=== PATIENT | female | born 1950 | race Caucasian/White ===

== ENCOUNTER → 2016-06-10 | Outpatient (CLI) | payer MEDICARE, OTHER ==
[2016-06-10 09:24] LABS: BASOPHILS # (AUTO) 0.1 10^3/uL (0.0-0.1); BASOPHILS % (AUTO) 1 % (0-10); EOSINOPHILS # (AUTO) 0.2 10^3/uL (0.0-0.3); EOSINOPHILS % (AUTO) 4 % (0-10); LYMPHOCYTES # (AUTO) 1.1 X 10^3 (1.0-4.0); LYMPHOCYTES % (AUTO) 25 % (12-44); MEAN CORPUSCULAR HEMOGLOBIN 32 PG (25-34); MEAN CORPUSCULAR HGB CONC 34 G/DL (32-36); MEAN CORPUSCULAR VOLUME 94 FL (80-99); MEAN PLATELET VOLUME 9.9 FL (7.4-10.4); MONOCYTES # (AUTO) 0.3 X 10^3 (0.0-1.0); MONOCYTES % (AUTO) 8 % (0-12); NEUTROPHILS # (AUTO) 2.8 X 10^3 (1.8-7.8); NEUTROPHILS % (AUTO) 63 % (42-75); PLATELET COUNT 226 10^3/uL (130-400); RED BLOOD COUNT 4.28 10^6/uL (4.35-5.85); RED CELL DISTRIBUTION WIDTH 12.9 % (10.0-14.5); WHITE BLOOD COUNT 4.5 10^3/uL (4.3-11.0)
[2016-06-10 09:56] LABS: ALANINE AMINOTRANSFERASE 20 U/L (0-55); ANION GAP 9 MMOL/L (5-14); ASPARTATE AMINO TRANSFERASE 18 U/L (5-34); BILIRUBIN,TOTAL 0.5 MG/DL (0.1-1.0); BLOOD UREA NITROGEN 16 MG/DL (7-18); BUN/CREATININE RATIO 18; CALCIUM 9.1 MG/DL (8.5-10.1); CARBON DIOXIDE 29 MMOL/L (21-32); CHLORIDE 106 MMOL/L (98-107); CHOLESTEROL 187 MG/DL (< 200); CREATININE SERUM 0.87 MG/DL (0.60-1.30); DIRECT LDL 116 MG/DL (1-129); GFR ESTIMATED > 60; GLUCOSE 92 MG/DL (70-105); POTASSIUM 3.6 MMOL/L (3.6-5.0); SODIUM 144 MMOL/L (135-145); TOTAL PROTEIN 6.6 G/DL (6.4-8.2); TRIGLYCERIDES 89 MG/DL (<150); VLDL CHOLESTEROL 18 MG/DL (5-40)
[2016-06-10 10:17] LABS: THYROID STIMULATING HORMONE 0.44 UIU/ML (0.35-4.94)
== END ==
LOC: LAB 09:06
PROVIDERS: ATTEND Family Medicine
DX: Z00.00 Encounter for general adult medical examination without abnormal findings (principal); I10 Essential (primary) hypertension; E78.2 Mixed hyperlipidemia; E03.9 Hypothyroidism, unspecified
CPT/HCPCS: 36415; 80053; 80061; 84439; 84443; 85025

== ENCOUNTER → 2016-08-06 | Outpatient (CLI) | payer MEDICARE, OTHER ==
--- NOTE | 2016-08-06 18:55 | Diagnostic Imaging Report ---
EXAMINATION: DEXA scan. INDICATION: Osteopenia TECHNIQUE: Bone mineral density estimated based on dual energy radiography over the lumbar spine and femoral necks, was performed. FINDINGS: The lumbar spine T-score is 0.6. T score over the left femoral neck is -0.2 and on the right is similarly -0.2. IMPRESSION: Bone mineral density within normal limits. Dictated by: Dictated on workstation # [id number]
== END ==
LOC: RAD 10:34
PROVIDERS: ATTEND Family Medicine
DX: Z12.31 Encounter for screening mammogram for malignant neoplasm of breast (principal); M89.9 Disorder of bone, unspecified
CPT/HCPCS: 77067; 77080

== ENCOUNTER → 2017-06-28 | Outpatient (CLI) | payer MEDICARE, OTHER ==
[2017-06-28 10:22] LABS: BASOPHILS # (AUTO) 0.1 10^3/uL (0.0-0.1); BASOPHILS % (AUTO) 2 % (0-10); EOSINOPHILS # (AUTO) 0.2 10^3/uL (0.0-0.3); EOSINOPHILS % (AUTO) 4 % (0-10); HEMATOCRIT 41 % (35-52); HEMOGLOBIN 14.2 G/DL (11.5-16.0); LYMPHOCYTES # (AUTO) 0.9 X 10^3 (1.0-4.0); LYMPHOCYTES % (AUTO) 23 % (12-44); MEAN CORPUSCULAR HEMOGLOBIN 32 PG (25-34); MEAN CORPUSCULAR HGB CONC 34 G/DL (32-36); MEAN CORPUSCULAR VOLUME 92 FL (80-99); MEAN PLATELET VOLUME 9.6 FL (7.4-10.4); MONOCYTES # (AUTO) 0.4 X 10^3 (0.0-1.0); MONOCYTES % (AUTO) 9 % (0-12); NEUTROPHILS # (AUTO) 2.6 X 10^3 (1.8-7.8); NEUTROPHILS % (AUTO) 63 % (42-75); PLATELET COUNT 210 10^3/uL (130-400); RED BLOOD COUNT 4.48 10^6/uL (4.35-5.85); RED CELL DISTRIBUTION WIDTH 12.8 % (10.0-14.5); WHITE BLOOD COUNT 4.1 10^3/uL (4.3-11.0)
[2017-06-28 10:47] LABS: ALANINE AMINOTRANSFERASE 23 U/L (0-55); ALBUMIN 4.4 GM/DL (3.2-4.5); ALKALINE PHOSPHATASE 93 U/L (40-136); BILIRUBIN,TOTAL 0.6 MG/DL (0.1-1.0); BUN/CREATININE RATIO 20; CALCIUM 9.8 MG/DL (8.5-10.1); CARBON DIOXIDE 24 MMOL/L (21-32); CHLORIDE 104 MMOL/L (98-107); CHOLESTEROL 170 MG/DL (< 200); CREATININE SERUM 0.88 MG/DL (0.60-1.30); GFR ESTIMATED > 60; GLUCOSE 97 MG/DL (70-105); HDL CHOLESTEROL 61 MG/DL (40-60); POTASSIUM 3.5 MMOL/L (3.6-5.0); SODIUM 140 MMOL/L (135-145); TOTAL PROTEIN 6.8 GM/DL (6.4-8.2); TRIGLYCERIDES 87 MG/DL (<150); VLDL CHOLESTEROL 17 MG/DL (5-40)
== END ==
LOC: LAB 10:01
PROVIDERS: ATTEND Family Medicine
DX: I10 Essential (primary) hypertension (principal); E78.5 Hyperlipidemia, unspecified; E03.9 Hypothyroidism, unspecified
CPT/HCPCS: 36415; 80053; 80061; 84443; 85025

== ENCOUNTER → 2017-08-09 | Outpatient (CLI) | payer MEDICARE, OTHER ==
--- NOTE | 2017-08-10 19:03 | Diagnostic Imaging Report ---
INDICATION: Routine screening. Comparison is made with prior study from 08/06/2016 and 07/01/2015. 2-D and 3-D bilateral screening mammography was performed with CAD. The current study was also evaluated with a Computer Aided Detection (CAD) system. Scattered fibroglandular densities are identified bilaterally. There are benign-appearing calcifications bilaterally. No mass or malignant appearing microcalcifications are seen. Axillae are unremarkable. IMPRESSION: No mammographic features suspicious for malignancy are identified. ACR BI-RADS Category 2: Benign findings. Result letter will be mailed to the patient. Note: At least 10% of breast cancer is not imaged by mammography. Dictated by: Dictated on workstation # [id number]
== END ==
LOC: RAD 14:41
PROVIDERS: ATTEND Family Medicine
DX: Z12.31 Encounter for screening mammogram for malignant neoplasm of breast (principal)
CPT/HCPCS: 77067

== ENCOUNTER → 2018-06-29 | Outpatient (CLI) | payer MEDICARE, OTHER ==
[2018-06-29 10:32] LABS: BASOPHILS # (AUTO) 0.1 10^3/uL (0.0-0.1); BASOPHILS % (AUTO) 2 % (0-10); EOSINOPHILS # (AUTO) 0.1 10^3/uL (0.0-0.3); EOSINOPHILS % (AUTO) 3 % (0-10); HEMATOCRIT 41 % (35-52); HEMOGLOBIN 13.9 G/DL (11.5-16.0); LYMPHOCYTES # (AUTO) 1.3 X 10^3 (1.0-4.0); LYMPHOCYTES % (AUTO) 30 % (12-44); MEAN CORPUSCULAR HEMOGLOBIN 32 PG (25-34); MEAN CORPUSCULAR HGB CONC 34 G/DL (32-36); MEAN CORPUSCULAR VOLUME 95 FL (80-99); MEAN PLATELET VOLUME 8.9 FL (7.4-10.4); MONOCYTES # (AUTO) 0.4 X 10^3 (0.0-1.0); MONOCYTES % (AUTO) 8 % (0-12); NEUTROPHILS # (AUTO) 2.5 X 10^3 (1.8-7.8); NEUTROPHILS % (AUTO) 57 % (42-75); PLATELET COUNT 224 10^3/uL (130-400); RED CELL DISTRIBUTION WIDTH 13.6 % (10.0-14.5); WHITE BLOOD COUNT 4.3 10^3/uL (4.3-11.0)
[2018-06-29 10:49] LABS: ALBUMIN 4.2 GM/DL (3.2-4.5); BILIRUBIN,TOTAL 0.4 MG/DL (0.1-1.0); CALCIUM 9.5 MG/DL (8.5-10.1); CREATININE SERUM 0.96 MG/DL (0.60-1.30); POTASSIUM 3.8 MMOL/L (3.6-5.0); TOTAL PROTEIN 6.7 GM/DL (6.4-8.2)
[2018-06-29 11:12] LABS: FREE T4 (FREE THYROXINE) 1.25 NG/DL (0.70-1.48)
== END ==
LOC: LAB 10:12
PROVIDERS: ATTEND Family Medicine
DX: I10 Essential (primary) hypertension (principal); E78.5 Hyperlipidemia, unspecified; E03.9 Hypothyroidism, unspecified
CPT/HCPCS: 36415; 80053; 80061; 84439; 84443; 85025

== ENCOUNTER → 2018-08-10 | Outpatient (CLI) | payer MEDICARE, OTHER ==
--- NOTE | 2018-08-10 11:28 | Diagnostic Imaging Report ---
INDICATION: Routine screening. COMPARISON: 08/09/2017 and 08/06/2016. TECHNIQUE: 2D and 3D bilateral screening mammography was performed with CAD. FINDINGS: Both breasts are heterogeneously dense, limiting the sensitivity of mammography. There are scattered benign-appearing calcifications. No mass or malignant appearing microcalcifications are seen. The axillae are unremarkable. IMPRESSION: No mammographic features suspicious for malignancy are identified. ACR BI-RADS Category 2: Benign findings. Result letter will be mailed to the patient. Note: At least 10% of breast cancer is not imaged by mammography. Dictated by: Dictated on workstation # [id number]
== END ==
LOC: RAD 09:44
PROVIDERS: ATTEND Nurse Practitioner Family
DX: Z12.31 Encounter for screening mammogram for malignant neoplasm of breast (principal)
CPT/HCPCS: 77067

== ENCOUNTER → 2018-10-27 | Outpatient (CLI) | payer MEDICARE, OTHER ==
[2018-10-27 11:32] LABS: FREE T4 (FREE THYROXINE) 0.97 NG/DL (0.70-1.48)
== END ==
LOC: LAB 10:23
PROVIDERS: ATTEND Family Medicine
DX: E03.4 Atrophy of thyroid (acquired) (principal)
CPT/HCPCS: 36415; 84439; 84443

== ENCOUNTER → 2019-02-09 | Outpatient (CLI) | payer MEDICARE, OTHER ==
[2019-02-09 12:57] LABS: FREE T4 (FREE THYROXINE) 0.9 NG/DL (0.70-1.48)
== END ==
LOC: LAB 12:09
PROVIDERS: ATTEND Family Medicine
DX: E03.9 Hypothyroidism, unspecified (principal)
CPT/HCPCS: 36415; 84439; 84443

== ENCOUNTER → 2019-07-20 | Outpatient (CLI) | payer MEDICARE, OTHER ==
[2019-07-20 11:16] LABS: BASOPHILS # (AUTO) 0.1 10^3/uL (0.0-0.1); BASOPHILS % (AUTO) 3 % (0-10); EOSINOPHILS # (AUTO) 0.2 10^3/uL (0.0-0.3); EOSINOPHILS % (AUTO) 5 % (0-10); HEMATOCRIT 39 % (35-52); HEMOGLOBIN 12.1 G/DL (11.5-16.0); LYMPHOCYTES # (AUTO) 0.9 X 10^3 (1.0-4.0); LYMPHOCYTES % (AUTO) 25 % (12-44); MEAN CORPUSCULAR HEMOGLOBIN 26 PG (25-34); MEAN CORPUSCULAR HGB CONC 31 G/DL (32-36); MEAN CORPUSCULAR VOLUME 84 FL (80-99); MEAN PLATELET VOLUME 8.6 FL (7.4-10.4); MONOCYTES # (AUTO) 0.4 X 10^3 (0.0-1.0); MONOCYTES % (AUTO) 11 % (0-12); NEUTROPHILS # (AUTO) 2.1 X 10^3 (1.8-7.8); NEUTROPHILS % (AUTO) 57 % (42-75); PLATELET COUNT 242 10^3/uL (130-400); RED CELL DISTRIBUTION WIDTH 16.5 % (10.0-14.5); WHITE BLOOD COUNT 3.7 10^3/uL (4.3-11.0)
[2019-07-20 11:42] LABS: ALBUMIN 4.2 GM/DL (3.2-4.5); BILIRUBIN,TOTAL 0.4 MG/DL (0.1-1.0); CALCIUM 9.3 MG/DL (8.5-10.1); CREATININE SERUM 1.03 MG/DL (0.60-1.30); TOTAL PROTEIN 7.2 GM/DL (6.4-8.2)
[2019-07-20 12:03] LABS: FREE T4 (FREE THYROXINE) 1.05 NG/DL (0.70-1.48)
== END ==
LOC: LAB 11:01
PROVIDERS: ATTEND Nurse Practitioner Family
DX: I10 Essential (primary) hypertension (principal); E03.4 Atrophy of thyroid (acquired)
CPT/HCPCS: 36415; 80053; 80061; 84439; 84443; 85025

== ENCOUNTER → 2019-08-10 | Outpatient (CLI) | payer MEDICARE, OTHER | LOC: CARD 11:22 | PROVIDERS: ATTEND Internal Medicine Cardiovascular Disease | DX: I10 Essential (primary) hypertension (principal); E78.5 Hyperlipidemia, unspecified; R06.02 Shortness of breath; R07.89 Other chest pain | CPT/HCPCS: 93306 ==

== ENCOUNTER → 2019-08-22 | Outpatient (CLI) | payer MEDICARE, OTHER ==
[~2019-08-22] VITALS: Ht 160 cm; Wt 91.0 kg
[~2019-08-22] MED LIST: CATHETER FLUSH 10 ML SYR IV PRN; REGADENOSON 0.4 MG/5 ML SYR (LEXISCAN) IV ONE
[2019-08-22 08:56] VITALS: BP 163/90
[2019-08-22 08:57] VITALS: BP 170/97
--- NOTE | 2019-08-22 20:46 | STRESS TEST ---
DATE OF SERVICE: 08/22/2019 RESTING AND POST REGADENOSON TECHNETIUM-99M TETROFOSMIN SPECT CT IMAGING ORDERING PHYSICIAN: Dr. Berkowitz. PRIMARY PHYSICIAN: Dr. Membreno. CLINICAL DIAGNOSES: Shortness of breath and chest discomfort. Baseline images were carried out after injection of 10.39 mCi of technetium-99m Tetrofosmin. This was followed by 0.4 mg Regadenoson and 30.1 mCi of technetium-99m Tetrofosmin for stress imaging. The electrocardiogram showed sinus rhythm at baseline. It did not change significantly with Regadenoson infusion. Review of images at rest and following stress does not indicate any significant perfusion defects consistent with myocardial ischemia or infarction. Left ventricular ejection fraction is calculated to be 65%. No regional wall motion abnormality was seen. CONCLUSIONS: 1. No evidence of any significant myocardial ischemia or infarction on this study. 2. Normal regional wall motion. 3. Normal global left ventricular systolic function with a calculated ejection fraction of 65%. Job ID: [id number] DocumentID: [id number] Dictated Date: 08/22/2019 16:52:19 Digital Sales Representative Date: 08/22/2019 20:45:32 Dictated By: ANA BERKOWITZ MD, MA, FACP, FACC,
== END ==
LOC: CARD 08-11 07:16
PROVIDERS: ATTEND Internal Medicine Cardiovascular Disease
DX: R07.89 Other chest pain (principal); I10 Essential (primary) hypertension; E78.5 Hyperlipidemia, unspecified; R06.02 Shortness of breath
CPT/HCPCS: 78452; 93017; 93225; 93226; A9502

== ENCOUNTER → 2020-01-22 | Outpatient (CLI) | payer MEDICARE, OTHER ==
[2020-01-22 11:21] LABS: FREE T4 (FREE THYROXINE) 0.88 NG/DL (0.70-1.48)
== END ==
LOC: LAB 10:26
PROVIDERS: ATTEND Family Medicine
DX: E03.9 Hypothyroidism, unspecified (principal)
CPT/HCPCS: 36415; 84439; 84443

== ENCOUNTER → 2020-08-28 | Outpatient (CLI) | payer MEDICARE, OTHER ==
[~2020-08-28] MED LIST changes: -CATHETER FLUSH 10 ML SYR IV PRN; +GADOBUTROL 10 MMOL/10 ML (GADAVIST) VIAL IV ONE; -REGADENOSON 0.4 MG/5 ML SYR (LEXISCAN) IV ONE
--- NOTE | 2020-08-28 12:28 | Diagnostic Imaging Report ---
PROCEDURE: MR imaging of the brain with and without contrast. TECHNIQUE: Multiplanar, multisequence MR imaging of the brain was performed with and without contrast. INDICATION: Headaches. There are no prior studies available for comparison. FINDINGS: There is no mass, shift of midline or hemorrhage to suggest an acute intracranial abnormality. There is no abnormal signal arising from the brain on the diffusion series to suggest an area of acute ischemia either. Furthermore there is no abnormal enhancement on postcontrast sequence to suggest a neoplastic or infectious process. The FLAIR series does show focal and diffuse areas of increased signal in the periventricular white matter bilaterally. These findings are nonspecific but may be related to encephalomalacia from microvascular ischemia. There is also cortical atrophy. The degree of atrophy is consistent with patient's age. The sella is not enlarged and the expected carotid flow voids are evident bilaterally. The orbits are symmetrical. Neither lens was identified, however. The sinuses are generally clear. The 7th and 8th nerve complexes are unremarkable. IMPRESSION: 1. There is no evidence for an acute intracranial abnormality. In particular, there is no abnormal signal arising from the brain on the diffusion series to indicate an area of acute ischemia. 2. There is no abnormal enhancement to suggest a neoplastic or infectious process either. 3. There are senescent changes including periventricular encephalomalacia and cortical atrophy. The senescent changes are consistent with the patient's age. Dictated by: Dictated on workstation # [id number]
== END ==
LOC: RAD 11:00
PROVIDERS: ATTEND Family Medicine
DX: G31.1 Senile degeneration of brain, not elsewhere classified (principal); G93.89 Other specified disorders of brain
CPT/HCPCS: 70553

== ENCOUNTER 2020-12-18 10:26 | Outpatient (RCR) | payer MEDICARE, OTHER | END 2020-12-18 11:19 | disposition home or self-care (01) | PROVIDERS: ATTEND Family Medicine | DX: M54.2 Cervicalgia (principal); I10 Essential (primary) hypertension; R51.9 Headache, unspecified ==

== ENCOUNTER → 2021-01-02 | Outpatient (CLI) | payer MEDICARE, OTHER ==
--- NOTE | 2021-01-02 15:24 | Diagnostic Imaging Report ---
INDICATION: Uncontrolled hypertension Grayscale imaging of the kidneys was performed. Color Doppler velocity and spectral waveform analysis of the renal arteries was performed. The right kidney measures 10.5 cm in length. The left kidney measures 9.5 cm in length. The cortex is well-maintained bilaterally. There is no mass, calculus or hydronephrosis seen on either side. The the renal arteries show normal velocities and waveforms with no changes to suggest any significant renal artery stenosis. IMPRESSION: No renal artery stenosis is seen. Dictated by: Dictated on workstation # [id number]
== END ==
LOC: RAD 07:49
PROVIDERS: ATTEND Family Medicine
DX: I10 Essential (primary) hypertension (principal)
CPT/HCPCS: 76770; 93975

== ENCOUNTER 2021-01-28 05:34 | Outpatient (CLI) | payer MEDICARE, OTHER ==
[~2021-01-28] VITALS: Ht 160.2 cm; Wt 96.4 kg
[2021-01-29] MEDS ORDERED: ASPI-999 PO (13:54)
[2021-01-29] MEDS ORDERED: KRIL1CAP18 PO (13:54)
[2021-01-29] MEDS ORDERED: MAGN400C PO (13:54)
[2021-01-29] MEDS ORDERED: ATOR40TA70 PO (13:54)
[2021-01-29] MEDS ORDERED: HYDR-3924 PO (13:54)
[2021-01-29] MEDS ORDERED: DILT180C84 PO (13:54)
[2021-01-29] MEDS ORDERED: LEVO88TA2 PO (13:54)
[2021-01-29] MEDS ORDERED: FURO40TA4 PO (13:54)
[2021-01-29] MEDS ORDERED: LOSA50TA63 PO (13:54)
[2021-01-29] MEDS ORDERED: POTA99TA21 PO (14:10)
[2021-01-29] MEDS ORDERED: ZINC30TA2 PO (14:10)
[2021-01-29] MEDS ORDERED: [UNRECOGNIZED DRUG - OTHER] (14:10)
[2021-01-29] MEDS ORDERED: LEVO137C4 PO (14:10)
[2021-01-29] MEDS ORDERED: CYAN50009 SL (14:10)
[2021-01-29] MEDS ORDERED: ASCO100024 PO (14:10)
== END 2021-01-29 15:09 | disposition home or self-care (01) ==
LOC: PREOP 05:34
PROVIDERS: ATTEND Surgery
DX: Z01.818 Encounter for other preprocedural examination (principal)

== ENCOUNTER 2021-02-04 10:50 | Day surgery (SDC) | payer MEDICARE, OTHER ==
[~2021-02-04] VITALS: Ht 160.2 cm; Wt 96.4 kg
[~2021-02-04 10:50] MED LIST changes: +ASCO100024 PO; +ASPI-999 PO; +ATOR40TA70 PO; +CYAN50009 SL; +DILT180C84 PO; +FURO40TA4 PO; -GADOBUTROL 10 MMOL/10 ML (GADAVIST) VIAL IV ONE; +HYDR-3924 PO; +KRIL1CAP18 PO; +LEVO137C4 PO; +LEVO88TA2 PO; +LOSA50TA63 PO; +MAGN400C PO; +POTA99TA21 PO; +ZINC30TA2 PO; +[UNRECOGNIZED DRUG - OTHER]
[2021-02-04 11:10] VITALS: BP 151/89
[2021-02-04] MEDS ORDERED: LACTATED RINGERS 1,000 ML IV ONE (11:13)
[2021-02-04] MEDS ORDERED: LACTATED RINGERS 1,000 ML IV STA (11:21)
--- NOTE | 2021-02-04 11:30 | Progress Note-Pre Operative ---
Pre-Operative Progress Note H&P Reviewed The H&P was reviewed, patient examined and no changes noted. Date Seen by Provider: Feb 04, 2021 Time Seen by Provider: 11:30 Date H&P Reviewed: Feb 04, 2021 Time H&P Reviewed: 11:30 Pre-Operative Diagnosis: family hx colon cancer ROSA SALES DO Feb 04, 2021 11:30
[2021-02-04] MEDS ORDERED: MIDAZOLAM 2 MG/2 ML (VERSED) VIAL ONE (11:50)
[2021-02-04] MEDS ORDERED: PROPOFOL INJECTION 50 ML IV ONE ×2 (11:50→12:13)
[2021-02-04 12:30] VITALS: BP 142/84
--- NOTE | 2021-02-04 12:31 | Discharge Inst-Simple/Standard ---
Discharge Inst-Standard Patient Instructions/Follow Up Plan of Care/Instructions/FU: 5 years [place] Activity as Tolerated: Yes Discharge Diet: Regular Diet ROSA SALES DO Feb 04, 2021 12:31
--- NOTE | 2021-02-04 12:31 | Progress Note-Post Operative ---
Post-Operative Progess Note Surgeon (s)/Toxicologist (s) Surgeon ROSA SALES DO Toxicologist: NA Pre-Operative Diagnosis family hx colon cancer Post-Operative Diagnosis Normal Colon Procedure & Operative Findings Date of Procedure 02/04/21 Procedure Performed/Findings Colonoscopy Anesthesia Type Per AGILE QA TESTER Estimated Blood Loss Estimated blood loss (mL): None Specimens/Packing Specimens Removed None ROSA SALES DO Feb 04, 2021 12:31
[2021-02-04 12:35] VITALS: BP 136/78
[2021-02-04 13:05] VITALS: BP 136/86
--- NOTE | 2021-02-04 15:06 | Anesthesia-General Post-Op ---
MAC Patient Condition Mental Status/LOC: Same as Preop Cardiovascular: Satisfactory Nausea/Vomiting: Absent Respiratory: Satisfactory Pain: Controlled Complications: Absent Post Op Complications Complications None Follow Up Care/Instructions Patient Instructions None needed. Anesthesiology Discharge Order Discharge Order Patient is doing well, no complaints, stable vital signs, no apparent adverse anesthesia problems. No complications reported per nursing. RYLIE PERLA CRNA Feb 04, 2021 15:06
--- NOTE | 2021-02-04 16:59 | OPERATIVE REPORT ---
DATE OF SERVICE: 02/04/2021 PREOPERATIVE DIAGNOSIS: Family history of colon cancer. POSTOPERATIVE DIAGNOSIS: Normal colon. PROCEDURE PERFORMED: Colonoscopy. SURGEON: Rosa Kellogg DO. ANESTHESIA: Per SENIOR MECHANICAL DESIGN ENGINEER. ESTIMATED BLOOD LOSS: None. COMPLICATIONS: None. INDICATIONS FOR PROCEDURE: The patient is a 70-year-old female needing screening colonoscopy. She understands the risks and benefits of the procedure and wished to proceed with the procedure. Consent was signed in the chart. DESCRIPTION OF PROCEDURE: The patient was taken to the endoscopy suite and placed in a left lateral recumbent position. Timeout was performed. Digital rectal exam was performed. There were no palpable polyps, masses or ulcerations. Scope was inserted in the rectum and advanced all the way to the cecum with minimal difficulty. Prep was adequate. Scope was then slowly retracted back. There were no polyps, masses or ulcerations within the cecum, ascending, transverse, descending and sigmoid colon. Once in the rectum, scope was retroflexed noting no other pathology. Scope was returned to its normal position, slowly withdrawn until completely removed. The patient tolerated the procedure well without any complications. She was taken to the recovery room in a stable condition. RECOMMENDATIONS: The patient will need a repeat colonoscopy in 3 to 5 years due to the family history of colon cancer if benefits outweigh the risk. Any issues before that be seen at that time for reevaluation. Job ID: [id number] DocumentID: [id number] Dictated Date: 02/04/2021 12:34:51 Quarry Boss Date: 02/04/2021 16:58:51 Dictated By: ROSA KELLOGG DO
== END 2021-02-04 13:20 | disposition home or self-care (01) ==
LOC: ENDO 10:50
PROVIDERS: ATTEND Surgery
DX: Z12.11 Encounter for screening for malignant neoplasm of colon (principal); E78.5 Hyperlipidemia, unspecified; E66.9 Obesity, unspecified; I10 Essential (primary) hypertension; E03.9 Hypothyroidism, unspecified; G62.9 Polyneuropathy, unspecified; Z86.010 Personal history of colon polyps; Z79.02 Long term (current) use of antithrombotics/antiplatelets; Z85.828 Personal history of other malignant neoplasm of skin; Z87.891 Personal history of nicotine dependence; Z79.890 Hormone replacement therapy; Z79.899 Other long term (current) drug therapy; Z79.82 Long term (current) use of aspirin; Z80.0 Family history of malignant neoplasm of digestive organs; Z88.0 Allergy status to penicillin; Z68.37 Body mass index [BMI] 37.0-37.9, adult

== ENCOUNTER → 2021-08-27 | Outpatient (CLI) | payer MEDICARE, OTHER ==
[~2021-08-27] MED LIST changes: -POTA99TA21 PO; +POTA99TA26 PO
== END ==
LOC: CARD 15:00
PROVIDERS: ATTEND Internal Medicine Cardiovascular Disease
DX: I25.10 Atherosclerotic heart disease of native coronary artery without angina pectoris (principal)
CPT/HCPCS: 93306

== ENCOUNTER → 2021-09-02 | Outpatient (CLI) | payer MEDICARE, OTHER ==
[~2021-09-02] VITALS: Ht 160 cm; Wt 100.0 kg
[~2021-09-02] MED LIST changes: +REGADENOSON 0.4 MG/5 ML SYR (LEXISCAN) IV ONE
[2021-09-02] MEDS: CATHETER FLUSH 10 ML SYR IVP PRN ×2 (07:42→09:43)
[2021-09-02 09:37] VITALS: BP 149/73
[2021-09-02 09:58] LABS: BASOPHILS # (AUTO) 0.1 10^3/uL (0.0-0.1); BASOPHILS % (AUTO) 2 % (0-10); EOSINOPHILS # (AUTO) 0.2 10^3/uL (0.0-0.3); EOSINOPHILS % (AUTO) 4 % (0-10); HEMATOCRIT 44 % (35-52); HEMOGLOBIN 14.6 g/dL (11.5-16.0); LYMPHOCYTES # (AUTO) 1.4 10^3/uL (1.0-4.0); LYMPHOCYTES % (AUTO) 23 % (12-44); MEAN CORPUSCULAR HEMOGLOBIN 32 pg (25-34); MEAN CORPUSCULAR HGB CONC 33 g/dL (32-36); MEAN CORPUSCULAR VOLUME 97 fL (80-99); MEAN PLATELET VOLUME 9.3 fL (9.0-12.2); MONOCYTES # (AUTO) 0.5 10^3/uL (0.0-1.0); MONOCYTES % (AUTO) 8 % (0-12); NEUTROPHILS # (AUTO) 3.9 10^3/uL (1.8-7.8); NEUTROPHILS % (AUTO) 64 % (42-75); PLATELET COUNT 241 10^3/uL (130-400); WHITE BLOOD COUNT 6.1 10^3/uL (4.3-11.0)
[2021-09-02 10:13] LABS: ALBUMIN 4.4 GM/DL (3.2-4.5); POTASSIUM 3.9 MMOL/L (3.6-5.0)
[2021-09-02 10:14] LABS: CALCIUM 9.6 MG/DL (8.5-10.1)
[2021-09-02 10:16] LABS: TOTAL PROTEIN 7.1 GM/DL (6.4-8.2)
[2021-09-02 10:18] LABS: BILIRUBIN,TOTAL 0.7 MG/DL (0.1-1.0)
[2021-09-02 10:19] LABS: CREATININE SERUM 1.11 MG/DL (0.60-1.30)
[2021-09-02 10:22] LABS: MAGNESIUM 2.3 MG/DL (1.6-2.4)
== END ==
LOC: CARD 07:31
PROVIDERS: ATTEND Internal Medicine Cardiovascular Disease
DX: I25.10 Atherosclerotic heart disease of native coronary artery without angina pectoris (principal)
CPT/HCPCS: 78452; 80053; 80061; 83735; 84443; 85025; 93017; A9502; 36415

== ENCOUNTER → 2022-04-23 | Outpatient (CLI) | payer MEDICARE, OTHER ==
[~2022-04-23] MED LIST changes: -REGADENOSON 0.4 MG/5 ML SYR (LEXISCAN) IV ONE
--- NOTE | 2022-04-23 17:14 | Diagnostic Imaging Report ---
INDICATION: Bilateral knee pain 3 views of each knee were obtained. In the right knee, there is moderate narrowing of the medial tibiofemoral joint compartment with large osteophytes forming along the medial articular surface. There are also mild degenerative changes of the patellofemoral joint with osteophyte formation. In the left knee, there is minimal narrowing of the medial tibiofemoral joint compartment. IMPRESSION: Degenerative changes of both knees slightly worse on the right than on the left. No acute abnormality is seen. Dictated by: Dictated on workstation # [id number]
== END ==
LOC: RAD 14:52
PROVIDERS: ATTEND Family Medicine
DX: M17.0 Bilateral primary osteoarthritis of knee (principal)

== ENCOUNTER → 2022-05-20 | Outpatient (CLI) | payer MEDICARE, OTHER ==
[~2022-05-20] MED LIST changes: +BARIUM for suspension 96% w/w (Vanilla Silq Medium Density) PO ONE; +BARIUM for suspension 98% w/w (Vanilla Silq High Density) PO ONE
--- NOTE | 2022-05-20 10:40 | Diagnostic Imaging Report ---
Indication: Preoperative evaluation prior to bariatric surgery. Patient ingested effervescent crystals as well as thin and thick barium and imaging of the esophagus, stomach and proximal small bowel was performed. Total of 50 seconds of fluoroscopic time was utilized. The esophagus does show occasional tertiary contractions. No esophageal mass or stricture is identified. No gastroesophageal reflux or hiatal hernia was demonstrated. The stomach is normal in configuration. There is prompt emptying of barium into the small bowel. The duodenal bulb is without deformity. Proximal small bowel loops are normal caliber. IMPRESSION: Essentially unremarkable upper gastrointestinal study. Dictated by: Dictated on workstation # [id number]
== END ==
LOC: RAD 09:16
PROVIDERS: ATTEND Surgery
DX: K21.9 Gastro-esophageal reflux disease without esophagitis (principal)
CPT/HCPCS: 74246

== ENCOUNTER 2022-08-12 05:29 | Outpatient (CLI) | payer MEDICARE, OTHER ==
[~2022-08-12] VITALS: Ht 160 cm; Wt 99.5 kg
[~2022-08-12 05:29] MED LIST changes: -BARIUM for suspension 96% w/w (Vanilla Silq Medium Density) PO ONE; -BARIUM for suspension 98% w/w (Vanilla Silq High Density) PO ONE
[2022-08-12] MEDS ORDERED: VITAMIN D (12:57)
[2022-08-12] MEDS ORDERED: MULT-1136 PO (12:57)
[2022-08-12] MEDS ORDERED: MTP100TCR PO (12:57)
[2022-08-12] MEDS ORDERED: HYDR-3923 PO (13:06)
== END 2022-08-12 13:10 ==
LOC: PREOP 05:29
PROVIDERS: ATTEND Surgery
DX: Z01.818 Encounter for other preprocedural examination (principal)

== ENCOUNTER 2022-08-19 07:51 | Inpatient (IN) | payer MEDICARE, OTHER ==
[2022-08-19] VITALS (12 sets, daily range): BP systolic 113–166; BP diastolic 67–93
[~2022-08-19] VITALS: Ht 160 cm; Wt 103.9 kg
[~2022-08-19 07:51] MED LIST changes: +HYDR-3923 PO; +MTP100TCR PO; +MULT-1136 PO; +VITAMIN D
[2022-08-19] MEDS ORDERED: CLINDAMYCIN 600 MG/50 ML IVPB 50 ML IV ONE (08:15)
[2022-08-19] MEDS: LACTATED RINGERS 1,000 ML IV PRN ×2 (08:54→12:05)
[2022-08-19] MEDS ORDERED: BUP/EPI 0.5% 1:200,000 (SENSORCAINE) 30 ML VIAL ONE (08:59)
[2022-08-19] MEDS ORDERED: NEOSTIGMINE 3 MG/3 ML VIAL ONE (09:00)
[2022-08-19] MEDS ORDERED: MIDAZOLAM 2 MG/2 ML (VERSED) VIAL ONE (09:00)
[2022-08-19] MEDS ORDERED: LIDOCAINE PF 2% 5 ML (XYLOCAINE) VIAL ONE (09:00)
[2022-08-19] MEDS ORDERED: GLYCOPYRROLATE 0.2 MG/ML (ROBINUL) 2 ML VIAL ONE (09:00)
[2022-08-19] MEDS ORDERED: proPOfol 200 MG/20 ML (DIPRIVAN) VIAL IV ONE (09:00)
[2022-08-19] MEDS ORDERED: ONDANSETRON 4 MG/2 ML (SDV) Z0FRAN ONE (09:00)
[2022-08-19] MEDS ORDERED: fentaNYL INJ 100 MCG/2 ML AMP ONE (09:00)
[2022-08-19] MEDS ORDERED: ROCURONIUM 50 MG/5 ML (ZEMURON) VIAL IV ONE (09:01)
--- NOTE | 2022-08-19 09:07 | HISTORY AND PHYSICAL ---
This is for procedure date 08/20/2022. ATTENDING PRIMARY CARE PHYSICIAN: Seema Membreno MD HISTORY OF PRESENT ILLNESS: The patient is a 71-year-old female with morbid obesity, who is interested in the laparoscopic gastric sleeve resection and meets the medical criteria for bariatric surgery. She reports that she began gaining weight after she turned 48 years of age; however, she does report that over the past 2-3 years she has gained the majority of her weight. She reports that she has tried diets in the past such as keto, intermittent fasting, WeightWatchers, Mar Darrian, Nutrisystem and WeightNot. She reports that she did do best with a WeightNot; however, after stopping this, she did regain the weight back. She reports that she has not tried any exercises for weight loss. She reports that she has tried the medication phentermine in the past for weight loss and reports that she did lose some weight; however, again, she did regain this weight back after stopping the medication. Her medical comorbidities related to obesity include hypertension, lower extremity edema and degenerative joint disease of the knees. MEDICAL HISTORY: Hypertension, hypothyroidism, degenerative joint disease of the knees, lower extremity edema. SURGICAL HISTORY: Tonsillectomy in 1951; tubal ligation in 1979; left breast lumpectomy, which was benign in 1988. ALLERGIES: PENICILLIN. MEDICATIONS: Krill oil, turmeric, hydralazine 50 mg t.i.d., Synthroid 88 mcg on Wednesday and Wednesday, hydralazine 25 mg twice daily, meloxicam 15 mg daily, losartan potassium 100 mg daily, Lasix 40 mg daily, metoprolol ER 100 mg daily. SOCIAL HISTORY: Previous for a tobacco smoke for 20-pack years, quit in 1994. Rare for alcohol. FAMILY HISTORY: Father, colon cancer. Mother, lung cancer. Brother, stroke and diabetes mellitus. Paternal grandfather, myocardial infarction. Paternal grandmother, breast cancer. VITAL SIGNS: Blood pressure is 134/78. Current weight is 226.4 pounds at 5 feet 3 inches with a body mass index of 40.1. REVIEW OF SYSTEMS: This is a well-nourished female, in no acute distress. She is not experiencing any shortness of breath or difficulty breathing. No chest pain, palpitations or diaphoresis. No nausea, vomiting or abdominal pain. No diarrhea or constipation. No red blood per rectum. No dark tarry stools. No fever or chills. No recent inadvertent weight loss. All other review of systems is negative. PHYSICAL EXAMINATION: CHEST: Clear. Good breath sounds bilaterally. HEART: Regular, no murmurs. EXTREMITIES: No lower extremity edema. Negative Homans sign. HEENT: No scleral icterus. No cervical lymphadenopathy. ABDOMEN: Soft, nontender, nondistended. SKIN: Warm, dry and pink. NEUROLOGIC: Awake, alert and oriented x3. ASSESSMENT AND PLAN: A 71-year-old female with morbid obesity and medical comorbidities related to obesity including hypertension, lower extremity edema and degenerative joint disease of the knees. She is interested in the laparoscopic gastric sleeve resection and does meet the medical criteria for bariatric surgery. At this time, she has completed all the necessary tests and evaluations including an overnight oximetry study, nutrition and psychology consults, upper GI contrast study as well as obtaining clearance from her primary care physician and her security incident response specialist. The risks and benefits of the procedure as well as the procedure and home care instructions were explained to the patient. It was also discussed with her in depth about proper diet and exercise preoperatively as well as postoperatively. At this time, she verbalizes understanding of instructions and would like to proceed with the laparoscopic gastric sleeve resection, which we will proceed with scheduling. Job ID: [id number] DocumentID: [id number] Dictated Date: 07/23/2022 09:42:00 Director Of Academic Date: 07/23/2022 11:56:00 Dictated By: IVONNE PEARL APRN
[2022-08-19] MEDS ORDERED: ceFAZolin INJECTION 2,000 MG in NS (IVPB) 50 ML IV ONE (09:15)
[2022-08-19] MEDS ORDERED: ceFAZolin INJECTION 2,000 MG ONE (09:20)
[2022-08-19] MEDS ORDERED: NS (IVPB) 0 ML ONE (09:20)
--- NOTE | 2022-08-19 10:17 | Progress Note-Pre Operative ---
Pre-Operative Progress Note Date H&P Reviewed: August 19, 2022 Time H&P Reviewed: 10:15 History & Physical: H&P Reviewed, Patient Examed, No changes noted Pre-Operative Diagnosis: Morbid obesity, HTN, lower extremity edema, DJD of knees IVONNE PEARL APRN August 19, 2022 10:17
--- NOTE | 2022-08-19 10:18 | Discharge Inst-Surgical ---
D/C Lap Instructions-WILBERO Reconcile Patient Problems Problems Reviewed?: Yes Follow Up Appt in 2 weeks Activity as tolerated No driving for 24 hours No driving while on pain medications Incentive Spirometry use every 2 hours while awake Clear liquid diet for 2 weeks Symptoms to Report: Fever over 101 degree F, Nausea/Vomiting Infection Signs and Symptoms to report: Increased redness, Foul odor of wound, Increased drainage Bathing instructions: May shower Operative Area Clean/Dry; Keep incision clean/dry If any problems/questions: Contact your physician or go to Emergency Room IVONNE PEARL APRN August 19, 2022 10:18
[2022-08-19] MEDS ORDERED: NS IV 1000 ML 1,000 ML IV SCH (11:00)
[2022-08-19] MEDS ORDERED: diphenhydrAMINE 50 MG/ML INJ (BENADRYL) IV PRN (11:00)
[2022-08-19] MEDS ORDERED: ONDANSETRON 4 MG/2 ML (SDV) Z0FRAN IV PRN (11:00)
[2022-08-19] MEDS ORDERED: METOCLOPRAMIDE INJ 10 MG/2 ML (REGLAN) IV PRN (11:00)
[2022-08-19] MEDS ORDERED: NALOXONE 0.4 MG/ML 1 ML (NARCAN) VIAL IV PRN (11:00)
[2022-08-19] MEDS ORDERED: metroNIDAZOLE 500MG/100ML IVPB 100 ML IV SCH (11:00)
[2022-08-19] MEDS ORDERED: fentaNYL PCA 1,000 MCG/100 ML 100 ML IV PRN (11:00)
[2022-08-19] MEDS ORDERED: diphenhydrAMINE 50 MG/ML INJ (BENADRYL) IVP PRN (11:00)
[2022-08-19] MEDS ORDERED: BUP/EPI 0.5% 1:200,000 (SENSORCAINE) 30 ML VIAL INJ ONE (11:13)
[2022-08-19] MEDS ORDERED: SEVOFLURANE (ULTANE) 15 ML INHAL SOLN ONE (12:17)
--- NOTE | 2022-08-19 12:44 | Progress Note-Post Operative ---
Post-Operative Progess Note Surgeon (s)/Wheel And Axle Inspector (s) Surgeon KENTON LOBO MD Wheel And Axle Inspector: david lind MANUFACTURING PROJECT ENGINEER Pre-Operative Diagnosis Morbid obesity, HTN, lower extremity edema, DJD of knees Post-Operative Diagnosis same Procedure & Operative Findings Date of Procedure 08/19/22 Procedure Performed/Findings laparoscopic gastric sleeve resection. Anesthesia Type get Estimated Blood Loss Estimated blood loss (mL): minimal Specimens/Packing Specimens Removed stomach KENTON LOBO MD August 19, 2022 12:44
[2022-08-19] MEDS ORDERED: ONDANSETRON 4 MG/2 ML (SDV) Z0FRAN IVP PRN (12:45)
[2022-08-19] MEDS ORDERED: morphine INJ 10 MG/ML 1ML (SYR OR VIAL) IVP ONE (12:45)
[2022-08-19] MEDS ORDERED: HYDROmorphone 2 MG/ML VIAL (DILAUDID) IV ONE (12:45)
[2022-08-19] MEDS ORDERED: morphine INJ 10 MG/ML 1ML (SYR OR VIAL) ONE (12:58)
[2022-08-19] MEDS ORDERED: ceFAZolin INJECTION 2,000 MG in NS (IVPB) 50 ML IV SCH (14:00)
[2022-08-19] MEDS: RT-ALBUTEROL SULF 2.5 MG/3 ML PRE-MIX VIAL INH SCH ×2 (14:50→21:35)
--- NOTE | 2022-08-19 14:51 | Anesthesia-General Post-Op ---
General Patient Condition Mental Status/LOC: Same as Preop Cardiovascular: Satisfactory Nausea/Vomiting: Absent Respiratory: Satisfactory Pain: Controlled Complications: Absent Post Op Complications Complications None Follow Up Care/Instructions Patient Instructions None needed. Anesthesia/Patient Condition Patient Condition Patient was awake in PACU and doing well, no complaints, stable vital signs, no apparent adverse anesthesia problems. No complications reported per nursing. ARELY RG DO August 19, 2022 14:51
[2022-08-19] MEDS ORDERED: HYDROmorphone 2 MG/ML VIAL (DILAUDID) IVP PRN (15:30)
[2022-08-19] MEDS ORDERED: HYDROcodone/APAP 7.5MG-325 MG/15 ML (LORTAB) UDC PO PRN (15:30)
[2022-08-19] MEDS: 1/2 NS W/KCL 20 MEQ/L 1,000 ML IV SCH ×2 (16:12→17:08)
[2022-08-19] MEDS: METOCLOPRAMIDE INJ 10 MG/2 ML (REGLAN) IVP SCH ×3 (16:18→23:17)
[2022-08-19] MEDS: ONDANSETRON 4 MG/2 ML (SDV) Z0FRAN IVP SCH ×3 (16:18→23:17)
[2022-08-19] MEDS: ENOXAPARIN INJECTION 30 MG/0.3 ML SYR SC SCH (21:06)
--- NOTE | 2022-08-19 22:01 | OPERATIVE REPORT ---
DATE OF SERVICE: 08/19/2022 ATTENDING PRIMARY CARE PHYSICIAN: Dr. Seema Membreno. PREOPERATIVE DIAGNOSES: Morbid obesity, hypertension. POSTOPERATIVE DIAGNOSES: Morbid obesity, hypertension. PROCEDURE: Laparoscopic gastric sleeve resection. SURGEON: Kenton Lobo MD SLAG SKIMMER: Joe Toribio APRN ANESTHESIA: General endotracheal. ESTIMATED BLOOD LOSS: Minimal. FINDINGS: No hepatomegaly, no hiatal hernia, normal-appearing gallbladder. DISPOSITION: The patient tolerated the procedure well. INDICATIONS: The patient is a 71-year-old female who is in our bariatric surgical program for the laparoscopic gastric sleeve resection and meets the medical criteria for bariatric surgery. She states that she gained a significant amount of weight when she had around age 48. She felt her metabolism did decrease significantly. During the subsequent years, she has struggled with weight loss and maintenance. She has tried a number of diet and exercise regimens as well as medications with no success. She has tried diet programs including Weight Watchers, low-carbohydrate diet with no success. She has also tried a number of exercise regimens including walking treadmill, stationary bike and again with limited success. She has also been hampered by degenerative joint disease and is scheduled to have a right total knee arthroplasty in October of this year. She also has tried phentermine in the past and states that she was able to lose approximately 15 pounds; however, would regain the weight back after discontinuation of the medication. The patient's medical comorbidities include hypertension, degenerative joint disease, hypercholesterolemia. DESCRIPTION OF PROCEDURE: The patient was brought to the operating room, laid supine on the table. After adequate IV pain and sedative medications and general endotracheal intubation, the abdomen was prepped and draped in standard surgical fashion. A 0.5% Marcaine with epinephrine was used to anesthetize the overlying skin in the left upper abdominal quadrant and a transverse skin incision made using a #15 blade. An 0 silk suture was applied to the medial aspect of the incision for retraction and a Veress needle inserted with a low opening pressure of 0 mmHg. The abdomen was then insufflated to 15 mmHg pressure. The Veress needle removed and a 5 mm trocar placed followed by a 5 mm 45-degree angle laparoscope to visualize the peritoneal cavity. A 4-quadrant abdominal exploration was performed. There was no hepatomegaly. There was no hiatal hernia identified as well. The gallbladder appeared normal as well. Under direct visualization, we then proceeded to place a mid abdominal left of midline 10 mm port after the skin and peritoneal linings were anesthetized using 0.5% Marcaine with epinephrine and a transverse skin incision made using a #15 blade. In a similar manner, a midabdominal right of midline 15 mm port was placed followed by a right upper abdominal quadrant 5 mm port. The epigastric region was then anesthetized and a skin incision made using 11 blade and a tract created through the abdominal wall layers using a trocar to a 5 mm port and through this opening, a medium-sized Bradley liver retractor was placed in the left lobe of the liver retracted anteriorly and superiorly. The patient was then placed in steep reverse Trendelenburg position. We then measured 6 cm from the pylorus along the greater curvature and marked this area with a marking pen. We then proceeded to open up the gastrocolic ligament next to the stomach using the Sonicision entering the lesser sac. We first proceeded with inferior dissection with a Sonicision until we were approximately 2 cm below our marking with visualization of good hemostasis. We then proceeded cephalad taking the short gastric vessels as well as the angle of His, connective tissue fibers as well as the posterior stomach until the left dulce of the diaphragm identified. A 38-Palestinian Visigi was then placed under direct visualization and guided into the pylorus. Using this as our staple line guide, we first proceeded with a BEHZAD 45 mm poly glycolic acid coated black load. We then proceeded with two 60 mm black loads followed by two 60 mm purple loads leaving approximately 2 cm next to the gastroesophageal junction and completing our gastric sleeve resection. The staple line corners were then clipped with 5 mm clips. A leak test was then performed to 35 mmHg of air pressure with no leak identified. The staple line was then covered with fibrin glue and the omentum placed onto the staple line. The stomach was removed through the 15 mm port site. The fascia and peritoneum to the 10 and 15 mm port sites were then closed under direct visualization using a Abraham-Ronda device and 0 Vicryl suture. The abdomen was desufflated. The liver retractor, removed and all skin incisions were closed using 4-0 Monocryl running subcuticular sutures. The wounds were then cleaned and covered with Dermabond. The patient tolerated the procedure well. We will admit her for 23-hour observation and continue with IV fluids as well as DVT prophylaxis with calf SCDs and early ambulation as well as Lovenox injections. We will also proceed with pain control with a PICKLING GRADER pump. Tomorrow morning, we will start phase 1 clear liquid diet once she is tolerating with 60 mL of clear liquids every 30 minutes, has adequate pain control with oral pain medications, ambulating well, we will discharge her home where she will be instructed to do no heavy lifting or exertion as well as continued clear liquids for the next 2 weeks. Job ID: [id number] DocumentID: [id number] Dictated Date: 08/19/2022 13:29:53 Hospital Aides And Assistants Teacher Date: 08/19/2022 21:59:00 Dictated By: KENTON LOBO MD MTDD
[2022-08-19] MEDS: ceFAZolin INJECTION 2,000 MG in NS (IVPB) 50 ML IV SCH (23:17)
[2022-08-19] MEDS: metroNIDAZOLE 500MG/100ML IVPB 100 ML IV SCH (23:17)
[2022-08-20] MEDS: 1/2 NS W/KCL 20 MEQ/L 1,000 ML IV SCH ×2 (00:56→07:43)
[2022-08-20 04:00] VITALS: BP 144/68
[2022-08-20 05:27] LABS: HEMATOCRIT 39 % (35-52); MEAN CORPUSCULAR HEMOGLOBIN 33 pg (25-34); MEAN CORPUSCULAR HGB CONC 33 g/dL (32-36); MEAN CORPUSCULAR VOLUME 98 fL (80-99); MEAN PLATELET VOLUME 9.7 fL (9.0-12.2); PLATELET COUNT 212 10^3/uL (130-400); WHITE BLOOD COUNT 9.4 10^3/uL (4.3-11.0)
[2022-08-20 05:36] LABS: POTASSIUM 3.6 MMOL/L (3.6-5.0)
[2022-08-20 05:37] LABS: CALCIUM 8.5 MG/DL (8.5-10.1)
[2022-08-20 05:41] LABS: CREATININE SERUM 1.02 MG/DL (0.60-1.30)
[2022-08-20] MEDS: ONDANSETRON 4 MG/2 ML (SDV) Z0FRAN IVP SCH (06:06)
[2022-08-20] MEDS: METOCLOPRAMIDE INJ 10 MG/2 ML (REGLAN) IVP SCH (06:06)
[2022-08-20 07:22] VITALS: BP 149/71
[2022-08-20] MEDS: RT-ALBUTEROL SULF 2.5 MG/3 ML PRE-MIX VIAL INH SCH (07:41)
[2022-08-20] MEDS: metroNIDAZOLE 500MG/100ML IVPB 100 ML IV SCH (07:51)
[2022-08-20] MEDS: ceFAZolin INJECTION 2,000 MG in NS (IVPB) 50 ML IV SCH (07:53)
[2022-08-20] MEDS: ENOXAPARIN INJECTION 30 MG/0.3 ML SYR SC SCH (07:54)
[2022-08-20] MEDS ORDERED: SENNA W/DOCUSATE (SENOKOT S) TABLET PO SCH (09:00)
[2022-08-20] MEDS ORDERED: PANTOPRAZOLE 40 MG (PROTONIX) VIAL IV SCH (09:00)
[2022-08-20] MEDS ORDERED: PANTOPRAZOLE 40 MG (PROTONIX) TAB PO SCH (09:00)
[2022-08-20] MEDS ORDERED: ONDANSETRON 4 MG/2 ML (SDV) Z0FRAN IVP PRN (11:00)
[2022-08-20] MEDS ORDERED: METOCLOPRAMIDE INJ 10 MG/2 ML (REGLAN) IVP PRN (11:00)
[2022-08-20 12:31] VITALS: BP 147/67
== END 2022-08-20 13:15 | disposition home or self-care (01) | DRG 621 ==
LOC: 4TH 07:51 → SURG 07:52 → EDSTATUS 09:00 → 4TH 13:45
PROVIDERS: ADMIT Surgery; ATTEND Surgery
PROC: 0DB64Z3 Excision of Stomach, Percutaneous Endoscopic Approach, Vertical (ICD-10-PCS; principal; 2022-08-19 10:48)
DX: E66.01 Morbid (severe) obesity due to excess calories (principal); Z68.41 Body mass index [BMI] 40.0-44.9, adult; I10 Essential (primary) hypertension; M17.0 Bilateral primary osteoarthritis of knee; E03.9 Hypothyroidism, unspecified; R60.0 Localized edema; Z87.891 Personal history of nicotine dependence
CPT/HCPCS: 36415; 80048; 85027; 87081; 94640; 94664; 94760

== ENCOUNTER → 2022-12-08 | Outpatient (CLI) | payer MEDICARE, OTHER ==
--- NOTE | 2022-12-08 15:44 | Diagnostic Imaging Report ---
INDICATION: Routine screening. COMPARISON: 12/31/2020 and 08/10/2018. TECHNIQUE: 2D and 3D bilateral screening mammography was performed with CAD. FINDINGS: Both breasts are heterogeneously dense, limiting the sensitivity of mammography. The parenchymal pattern is stable. No dominant mass or malignant-appearing microcalcifications are seen. The axillae are unremarkable. IMPRESSION: No mammographic features suspicious for malignancy are identified. ACR BI-RADS Category 1: Negative. Result letter will be mailed to the patient. Note: At least 10% of breast cancer is not imaged by mammography. Dictated by: Dictated on workstation # [id number]
== END ==
LOC: RAD 13:19
PROVIDERS: ATTEND Family Medicine
DX: Z12.31 Encounter for screening mammogram for malignant neoplasm of breast (principal)
CPT/HCPCS: 77063; 77067